=== PATIENT | female | born 1985 | race Caucasian/White ===

== ENCOUNTER 2018-09-30 20:22 | Emergency (ER) | payer MEDICAID ==
[~2018-09-30] VITALS: Ht 165.1 cm; Wt 65.8 kg
--- NOTE | 2018-09-30 20:30 | NUR ---
Patient to ER bed 8 for evaluation.
[2018-09-30 20:34] VITALS: BP_SYST 122
--- NOTE | 2018-09-30 20:35 | NUR ---
Patient to ER via triage for evaluation of right sided rib pain x 4 days. Patient denies any known trauma or injury. Patient reports that she was seen at another hospital and had that her work-up was negative. Patient reports that pain increased today after coughing. Patient is awake, alert and oriented in no acute distress, HR elevated but vital signs otherwise normal, respirations even and unlabored, no increase noted in work of breathing. Patient able to ambulate without difficulty with slow, steady gait to bed 8. Awaiting evaluation by ER MD, will continue to observe and assess.
[2018-09-30] MEDS ORDERED: AMLO5TAB4 PO (20:41)
[2018-09-30] MEDS ORDERED: DIVA250T PO (20:41)
[2018-09-30] MEDS ORDERED: ALPR1TAB2 PO (20:41)
--- NOTE | 2018-09-30 21:00 | NUR ---
ER at bedside examining patient.
[2018-09-30] MEDS ORDERED: KETOROLAC TROMETHAMINE 60 MG/2 ML VIAL IM ONE (21:15)
--- NOTE | 2018-09-30 21:26 | NUR ---
Patient to radiology in stable condition via wheelchair.
--- NOTE | 2018-09-30 21:31 | NUR ---
Patient returned from radiology in stable condition via wheelchair. No adverse reaction noted to medication.
[2018-09-30 22:15] VITALS: BP_SYST 116
--- NOTE | 2018-09-30 22:15 | NUR ---
Patient given written and verbal discharge instructions and verbalizes understanding. ER MD discussed with patient the results and treatment provided. Patient in stable condition. ID arm band removed. No RX given. Patient educated on pain management and to follow up with PMD. Pain Scale 0. Opportunity for questions provided and answered. Medication side effect fact sheet provided. Patient left ER in no acute distress, able to ambulate without difficulty with slow, steady gait with friend at her side. No adverse reaction noted to medication.
== END 2018-09-30 22:15 | disposition home or self-care (01) ==
LOC: SED 20:22
DX: R07.89 Other chest pain (principal); J45.909 Unspecified asthma, uncomplicated; I10 Essential (primary) hypertension; F17.200 Nicotine dependence, unspecified, uncomplicated; Z71.6 Tobacco abuse counseling; Z79.899 Other long term (current) drug therapy
CPT/HCPCS: 71100; 96372; 99283; J1885

== ENCOUNTER 2019-09-25 22:04 | Emergency (ER) | payer MEDICAID ==
[~2019-09-25] VITALS: Ht 162.6 cm; Wt 68.0 kg
[~2019-09-25 22:04] MED LIST: ALPR1TAB2 PO; AMLO5TAB4 PO; DIVA250T PO
[2019-09-25 22:10] VITALS: BP_SYST 137
[2019-09-25] MEDS ORDERED: DIPH-TET-PERTUS Vaccine 0.5 ML VIAL (ADACEL) I.M. ONE (22:45)
[2019-09-25] MEDS ORDERED: HYDROcodone/ACETAMIN 5-325 MG TAB (NORCO/ VICODIN) PO ONE (22:45)
[2019-09-25] MEDS ORDERED: KETOROLAC TROMETHAMINE 60 MG/2 ML VIAL IM ONE (22:45)
[2019-09-26] MEDS ORDERED: ceFAZolin SODIUM 1 GM VIAL IM ONE (00:15)
== END 2019-09-26 00:43 | disposition home or self-care (01) ==
LOC: SED 22:04
DX: S92.412B Displaced fracture of proximal phalanx of left great toe, initial encounter for open fracture (principal); W31.1XXA Contact with metalworking machines, initial encounter; Y93.89 Activity, other specified; Y92.89 Other specified places as the place of occurrence of the external cause; Y99.8 Other external cause status; J45.909 Unspecified asthma, uncomplicated; I10 Essential (primary) hypertension; Z79.899 Other long term (current) drug therapy
CPT/HCPCS: 73660; 90471; 90715; 96372; 99284; J1885

== ENCOUNTER 2019-09-30 03:58 | Emergency (ER) | payer MEDICAID ==
[~2019-09-30] VITALS: Ht 162.6 cm; Wt 68.0 kg
[2019-09-30 04:00] VITALS: BP_SYST 132
[2019-09-30 04:31] VITALS: BP_SYST 132
== END 2019-09-30 04:31 | disposition home or self-care (01) ==
LOC: SED 03:58
DX: S92.425B Nondisplaced fracture of distal phalanx of left great toe, initial encounter for open fracture (principal); F41.9 Anxiety disorder, unspecified; I10 Essential (primary) hypertension; F17.200 Nicotine dependence, unspecified, uncomplicated; X58.XXXA Exposure to other specified factors, initial encounter; Y93.89 Activity, other specified; Y92.89 Other specified places as the place of occurrence of the external cause; Y99.8 Other external cause status
CPT/HCPCS: 99281

== ENCOUNTER 2022-02-10 22:52 | Emergency (ER) | payer MEDICAID ==
[~2022-02-10] VITALS: Ht 165.1 cm; Wt 61.2 kg
[2022-02-10 23:22] VITALS: BP_SYST 121
--- NOTE | 2022-02-10 23:30 | NUR ---
NO URINE NEEDED, PATIENT HAD A BILATERAL TUBAL REMOVAL
--- NOTE | 2022-02-11 00:57 | NUR ---
ER at bedside examining patient.
--- NOTE | 2022-02-11 01:00 | NUR ---
PT WALKED IN C/O LEFT ANKLE PAIN S/P RUNNING TONIGHT AND FALLING. +SWELLING
[2022-02-11] MEDS ORDERED: HYDR-3917 PO (01:10)
[2022-02-11] MEDS ORDERED: HYDROcodone/ACETAMIN 5-325 MG TAB (NORCO/ VICODIN) PO ONE (01:30)
[2022-02-11 01:45] VITALS: BP_SYST 121
--- NOTE | 2022-02-11 01:45 | NUR ---
Patient given written and verbal discharge instructions and verbalizes understanding. ER MD discussed with patient the results and treatment provided. Patient in stable condition. ID arm band removed. Rx of NORCO given. Patient educated on pain management and to follow up with PMD. Pain Scale 5/10. Opportunity for questions provided and answered. Medication side effect fact sheet provided.
== END 2022-02-11 01:45 | disposition home or self-care (01) ==
LOC: SED 22:52
DX: S82.62XA Displaced fracture of lateral malleolus of left fibula, initial encounter for closed fracture (principal); S80.01XA Contusion of right knee, initial encounter; J45.909 Unspecified asthma, uncomplicated; I10 Essential (primary) hypertension; F17.200 Nicotine dependence, unspecified, uncomplicated; Z79.899 Other long term (current) drug therapy; W01.0XXA Fall on same level from slipping, tripping and stumbling without subsequent striking against object, initial encounter; Y93.89 Activity, other specified; Y92.89 Other specified places as the place of occurrence of the external cause; Y99.8 Other external cause status
CPT/HCPCS: 73564; 99284

== ENCOUNTER 2022-08-16 05:56 | Emergency (ER) | payer MEDICAID ==
[~2022-08-16] VITALS: Ht 165.1 cm; Wt 68.9 kg
[~2022-08-16 05:56] MED LIST changes: +HYDR-3917 PO
--- NOTE | 2022-08-16 06:20 | NUR ---
Patient to ER bed 07 to gown for evaluation. Side rails up. Report given to LAINA GROVES.
--- NOTE | 2022-08-16 06:20 | NUR ---
DR. RINCON AT BEDSIDE WITH PATIENT FOR MSE.
[2022-08-16 06:23] VITALS: BP_SYST 124
[2022-08-16] MEDS ORDERED: KETOROLAC TROMETHAMINE 60 MG/2 ML VIAL IM ONE (06:30)
[2022-08-16] MEDS ORDERED: HYDROcodone/ACETAMIN 10-325 MG TAB PO ONE (06:30)
--- NOTE | 2022-08-16 06:30 | NUR ---
PT PRESENTS TO ED C/O LOWER BACK PAIN AND NECK PAIN THAT HAS BEEN CONSTANT X4 DAYS THE PAIN IS DESCRIBED BY PT PULLING, DULL AND CONSTANT.PT STATES SHE IS GETTING NO RELIEF FROM SOMAS, NORCOS AND LIDOCAINE PATCH USE AT HOME. PT REQUESTED XRAY/IMAGING FOR WHERE IS SHE HAVING PAIN. SPOUSE AT BEDSIDE, VSS, NAD, EVEN UNLABORED RESPIRATIONS CONNECTED TO VS MONITOR SAFETY RAILS UP.
--- NOTE | 2022-08-16 06:45 | NUR ---
PT MEDICATED ACCORDING TO ORDERS.
--- NOTE | 2022-08-16 06:55 | NUR ---
PT TO CT
--- NOTE | 2022-08-16 07:15 | NUR ---
pt back from CT, reports pain has not resolved. md burgos made aware
[2022-08-16] MEDS ORDERED: MORPHINE 4 MG INJ. 4 MG/ML VIAL IM ONE (07:30)
[2022-08-16 07:48] VITALS: BP_SYST 117
--- NOTE | 2022-08-16 07:53 | NUR ---
discharge instructions reviewed with pt, pt verbalized understanding and denied any questions. pt ambulated from ed with steady gait
== END 2022-08-16 07:53 | disposition home or self-care (01) ==
LOC: SED 05:56
DX: M54.2 Cervicalgia (principal); M54.50 Low back pain, unspecified; G89.29 Other chronic pain; J45.909 Unspecified asthma, uncomplicated; I10 Essential (primary) hypertension; Z79.899 Other long term (current) drug therapy
CPT/HCPCS: 99284; 72040; 72100; 96372; J1885; J2270

== ENCOUNTER 2022-12-19 06:55 | Day surgery (SDC) | payer MEDICAID ==
[~2022-12-19] VITALS: Ht 165.1 cm; Wt 70.3 kg
[2022-12-19 07:23] LABS: HCG,QUAL RESULT NEGATIVE (NEGATIVE)
[2022-12-19 08:30] VITALS: O2SAT 100
[2022-12-19] MEDS: MEPERIDINE 100 MG INJ. 100 MG/ML VIAL ONE ×3 (08:38→08:42)
[2022-12-19] MEDS: MIDAZOLAM HCL 5 MG/5 ML VIAL ONE ×4 (08:38→08:45)
[2022-12-19] MEDS ORDERED: DIPHENHYDRAMINE INJ 50 MG/ML VIAL ONE (08:46)
[2022-12-19] MEDS ORDERED: ONDANSETRON HCL 4 MG/2 ML VIAL ONE (08:46)
[2022-12-19 09:44] VITALS: BP_SYST 125; PULSE 91; RESP 16; TEMP 97.6
== END 2022-12-19 09:35 | disposition home or self-care (01) ==
LOC: SDS 06:55 → SMU 06:57 → SDS 09:35
PROVIDERS: ATTEND Internal Medicine Gastroenterology
DX: R10.13 Epigastric pain (principal); K29.50 Unspecified chronic gastritis without bleeding; K29.80 Duodenitis without bleeding; F17.210 Nicotine dependence, cigarettes, uncomplicated; Z79.899 Other long term (current) drug therapy
CPT/HCPCS: 43239; 87081; 84703; 36415; 88305; 88312; 88313; 99152; G0378; J1200; J2250; J2405; J2175